=== PATIENT | male | born 1995 | race Caucasian/White ===

== ENCOUNTER → 2019-08-15 08:28 | Outpatient (CLI) | payer SELFPAY ==
--- NOTE | 2019-08-15 08:35 | CT_ITS ---
STUDY: CT TEMPORAL BONES WITHOUT CONTRAST - ATTN: I.A.C. S REASON FOR EXAM: Male, 24 years old. Chronic left hearing loss. RADIATION DOSAGE (If Supplied By Facility): CTDIvol = ( 67.58 ) mGy, DLP = ( 633.15 ) mGycm TECHNIQUE: The patient was scanned in a multi detector CT scanner. Transaxial imaging was performed without the administration of intravenous contrast material. Sagittal and coronal images were reconstructed. Individualized dose optimization techniques were used for this CT. COMPARISON: None. FINDINGS: RIGHT TEMPORAL BONE Normal right internal auditory canal. Normal visualized ossicles and tympanic cavity. Normal right cochlea and semicircular canals. Normal vestibular aqueduct. Normal right petrous carotid artery. Normal right jugular fossa. Normal right mastoid air cells. Normal right petrous apex. LEFT TEMPORAL BONE Normal left internal auditory canal. Diffuse soft tissue infiltration in the middle ear cavity as well as in the attic of the middle ear cavity with thinning of the overlying bony. Normal left petrous carotid artery. Normal right jugular fossa. There are moderate inflammatory changes of the left mastoid air cells consistent with moderate chronic otomastoiditis. Normal left petrous apex. CT/Orb Sella Post Fossa Ear w/o IMPRESSION: Diffuse soft tissue prominence within the left middle ear cavity extending to the region of the ossicles with thinning of the roof of the middle ear cavity on the left side. Opacification of the right mastoid air cells. Electronically Signed: Jaron Oviedo, at 15:27 EDT , Service support ,
== END ==
PROVIDERS: Family Provider Family Medicine; PCP Family Medicine; Referring Provider Otolaryngology; Visit Provider Otolaryngology
DX: H91.92 Unspecified hearing loss, left ear (principal)
CPT/HCPCS: 70480

== ENCOUNTER 2020-01-06 06:11 | Day surgery (SDC) | payer SELFPAY ==
[2020-01-06] VITALS (10 sets, daily range): BP systolic 106–126; BP diastolic 50–76; PULSE 58–74; RESP 14–18; TEMP 36.6–37.2; O2SAT 93–100; BMI 27.6
[2020-01-06] MEDS: Lactated Ringers 1,000 ML 100 ML IV (07:53)
--- NOTE | 2020-01-06 08:11 | DCINST_ITS ---
You will use the following diet at home:: No restrictions Your food should be the consistency of: Regular Discharge Activity: Return to Normal Activity Call your doctor if your incision/area has: Increased Pain/ Swelling Additional Dressing/Incision Instructions:: remove head wrap around noon on . after that, change the cotton ball in your ear as needed for drainage. place ointment on the incision behind the ear. Allergies/Adverse Reactions: Allergies No Known Allergies Allergy (Verified 01/06/20 06:45) Medications to take at Discharge Acetaminophen/Codeine #3 [Tylenol#3] 1 tab PO Q6H PRN PRN #15 tab 01/06/20 Ciprofloxacin [Cipro] 500 mg PO BID #12 tab 01/06/20 The following prescriptions were given: Ciprofloxacin [Cipro] 500 mg PO BID #12 tab Prescription Printed Acetaminophen/Codeine #3 [Tylenol#3] 1 tab PO Q6H PRN PRN #15 tab PRN Reason: Pain Score 1-10/10 Prescription Printed Primary Care Physician: Ian Lehman DO [Primary Care Provider] - Test Results: Test results from this visit will be discussed in further detail at your follow- up appointment, if applicable. Please Follow Up With: Moy Knowles MD When: 1 week
--- NOTE | 2020-01-06 08:15 | PCM.OPRPT ---
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 temporalis fascia graft, ossicular reconstruction Type of Anesthesia:: General Description of Procedure: on the day of the procedure, after appropriate informed consent was obtained, the patient was brought to the operating room and placed in supine position on the operating table. he was placed under general endotracheal anesthesia by the anesthesiologist. the endotracheal tube was secured, facial nerve electrodes were placed on the left face. the left ear was injected with lidocaine/epinephrine, it was prepped and draped in sterile fashion. a postauricular incision was made with a #15 blade. the posterior skin flap and mucosalization was encountered and reflected anteriorly with the pinna. a mucosal defect was created roughly 5mm from the annulus; this was elevated with the pinna and the mastoid bowl was exposed. the facial ridge was exposed. there was a superior overhang of bone - the sinodural angle was deepened and developed with a 4mm sherie gerardo. the tegmen was skeletonized laterally. the medial tegmen was appropriately drilled during his previous surgery. however cholesteatoma was found in the tegmen mastoidium and abutting the tegmen tympani. care was taken in this area; no bony defect was noted on the CT or when gently palpated with a gimmick. the cyst and contents were carefully delivered. there was a large amount of scar tissue globally given the chronicity of his infection. the mastoid bowl was also smoothed out with a 4mm sherie gerardo and diseased cells were removed. the diseased area near tegmen, superior to the holly-TM was now open and externalized. the prosthesis was encased in scar, but appeared to be in good position. however the patient has a maximal conductive loss. thus, the prosthesis was freed from all scar and repositioned. there was only a small stapes suprastructure remnant in the previous surgery over 10 years ago; thus, it was unlikely that removing this prosthesis and placing another blindly would further improve his hearing. a large amount of scar tissue was excised from the middle ear space and around the holly tympanic membrane. cartilage and a temporalis fascia graft was harvested and placed over the exposed prosthesis. gelfoam was placed lateral to this. bacitracin filled the EAC. a revision meatoplasty was performed by excision cartilage at the helical root and tacking this to the periosteum to open the canal wtih 4-0 vicryl. an anastacio pack was placed and expanded. the patient was awoken from anesthesia and transferred to the PACU in stable condition. he had no facial nerve disfunction postoperatively.
[2020-01-06] MEDS: Ciprofloxacin 0.3% 2.5ml Bottle 1 DRP (10:21)
[2020-01-06] MEDS: Neomycin/Bacitracin/Polymyxin Ointment 1 APPLIC (10:34)
[2020-01-06] MEDS: HYDROcodone Bitartrate/Apap 5/325 Tablet PO (13:12)
== END 2020-01-06 14:15 | disposition home or self-care (01) ==
LOC: SDC 06:11 → AC 06:12
PROVIDERS: PCP Family Medicine; Referring Provider Otolaryngology; Visit Provider Otolaryngology
PROC: (CPT 69643; principal; 2020-01-06 07:40)
DX: H71.02 Cholesteatoma of attic, left ear (principal); H92.12 Otorrhea, left ear
CPT/HCPCS: 00120; 69644; J7120; J2405